=== PATIENT | male | born 1950 | race Caucasian/White ===

== ENCOUNTER 2019-04-22 10:36 | Emergency (ER) | payer OTHER, MEDICARE ==
[~2019-04-22] VITALS: Ht 180.3 cm; Wt 73.9 kg
[~2019-04-22 10:36] MED LIST: ALBU90I; ALBU90OI6 INH; BCOIRO; CYCL10; ETOD400; FLUN25SP; FLUO20; FLUO20 PO; GABA400; HYDACE5; IPRAIS; LIDO5TP TOP; LISI5; LORA10; META800 PO; MORP30ER PO; NAPR550 PO; NORT25 PO; NORT50; OMEP20ER; OXYACE5T PO; PROM25 PO; SENN187; TRAM50; [UNRECOGNIZED DRUG - OTHER]; [UNRECOGNIZED DRUG - OTHER]
[2019-04-22] MEDS ORDERED: ATOR40TA (10:49)
[2019-04-22] MEDS ORDERED: Aspirin EC81 MG PO (10:49)
[2019-04-22] MEDS ORDERED: MIRALAX17 GM PO (10:50)
[2019-04-22] MEDS ORDERED: HYDPAM50 PO (10:50)
[2019-04-22] MEDS ORDERED: ETOD400 PO (10:51)
[2019-04-22] MEDS ORDERED: MIRT30 PO (10:51)
[2019-04-22] MEDS ORDERED: ROXICODONE5 MG PO ×2 (10:52→10:53)
[2019-04-22 12:01] LABS: BASOPHILS ABSOLUTE AUTO 0.08 K/mm3 (0.00-0.23); BASOPHILS PERCENT AUTO 1 % (0-2); EOSINOPHILS PERCENT AUTO 3 % (0-6); Hematocrit 33.6 % (37.0-53.0); Hemoglobin 10.8 g/dL (13.5-17.5); IMMATURE GRAN ABSOLUTE AUTO 0.04 K/mm3 (0.00-0.10); IMMATURE GRAN PERCENT AUTO 0 % (0-1); LYMPHOCYTES PERCENT AUTO 16 % (21-46); MONOCYTES PERCENT AUTO 9 % (4-13); Mean Corpuscular HGB 30.2 pg (26.0-34.0); Mean Corpuscular HGB Conc 32.1 g/dL (31.5-36.5); Mean Corpuscular Volume 94 fL (80-100); Mean Platelet Volume 8.9 fL (9.1-12.4); NEUTROPHILS ABSOLUTE AUTO 6.56 K/mm3 (1.96-9.15); NEUTROPHILS PERCENT AUTO 71 % (41-73); Platelet Count 578 K/mm3 (150-400); RDW Coefficient Variation 13.7 % (11.7-14.2); RDW Standard Deviation 46.6 fL (35.1-46.3); Red Blood Cell Count 3.58 M/mm3 (4.30-5.90); White Blood Cell Count 9.28 K/mm3 (4.00-11.30)
[2019-04-22 12:29] LABS: Alanine Aminotransfer (ALT/SGP 29 U/L (12-78); Albumin/Globulin Ratio 0.8 (0.8-1.8); Alk Phos 106 U/L (50-136); Anion Gap 4 mmol/L (6-16); Aspartate Aminotrans (AST/SGOT 16 U/L (12-37); Bilirubin, Total 0.3 mg/dL (0.1-1.0); Blood Urea Nitrogen 16 mg/dL (8-24); Bun/Creatinine Ratio 24.5 (12.0-20.0); CO2, Blood 31 mmol/L (21-32); Calcium, Blood 8.4 mg/dL (8.5-10.1); Chloride, Blood 110 mmol/L (98-108); Creatinine, Blood 0.65 mg/dL (0.60-1.20); Globulin, Blood 3.6 g/dL (2.2-4.0); Glomerular Filtration Rate >60 (60-); Glucose, Blood 103 mg/dL (70-99); Potassium, Blood 4.5 mmol/L (3.5-5.5); Sodium, Blood 145 mmol/L (136-145); Total Protein, Blood 6.6 g/dL (6.4-8.2)
== END 2019-04-22 13:50 | disposition home or self-care (01) ==
LOC: ER 10:36
PROVIDERS: Internal Medicine
DX: R56.9 Unspecified convulsions (principal); I10 Essential (primary) hypertension; E78.5 Hyperlipidemia, unspecified; J45.909 Unspecified asthma, uncomplicated; Z88.8 Allergy status to other drugs, medicaments and biological substances; Z79.899 Other long term (current) drug therapy; Z79.82 Long term (current) use of aspirin; Z79.891 Long term (current) use of opiate analgesic
CPT/HCPCS: 36415; 80053; 85025; 99284

== ENCOUNTER 2019-05-12 09:30 | Emergency (ER) | payer MEDICARE ==
[~2019-05-12] VITALS: Ht 180.3 cm; Wt 62.6 kg
[~2019-05-12 09:30] MED LIST changes: +ATOR40TA; +Aspirin EC81 MG PO; +ETOD400 PO; +HYDPAM50 PO; +MIRALAX17 GM PO; +MIRT30 PO; +ROXICODONE5 MG PO
== END 2019-05-12 12:33 | disposition home or self-care (01) ==
LOC: ER 09:30
DX: S71.112A Laceration without foreign body, left thigh, initial encounter (principal); M79.605 Pain in left leg; J45.909 Unspecified asthma, uncomplicated; I10 Essential (primary) hypertension; E78.5 Hyperlipidemia, unspecified; G89.29 Other chronic pain; Z88.8 Allergy status to other drugs, medicaments and biological substances; Z79.82 Long term (current) use of aspirin; Z79.899 Other long term (current) drug therapy; I73.9 Peripheral vascular disease, unspecified; Z89.519 Acquired absence of unspecified leg below knee; W01.0XXA Fall on same level from slipping, tripping and stumbling without subsequent striking against object, initial encounter
CPT/HCPCS: 73552; 96372-59; 96374; 99283-25; J1170